=== PATIENT | female | born 1950 | race Caucasian/White ===

== ENCOUNTER 2020-07-17 12:10 | Emergency (ER) | payer MEDICARE ==
[~2020-07-17] VITALS: Ht 170.2 cm; Wt 127.0 kg
[2020-07-17 16:16] VITALS: BP 135/73
== END 2020-07-17 18:56 | disposition short-term general hospital (02) ==
LOC: ER 12:10 → EDBD 12:10 → ER 18:56
DX: S05.92XA Unspecified injury of left eye and orbit, initial encounter (principal); S09.90XA Unspecified injury of head, initial encounter; H11.32 Conjunctival hemorrhage, left eye; E11.9 Type 2 diabetes mellitus without complications; I10 Essential (primary) hypertension; R07.89 Other chest pain; E78.5 Hyperlipidemia, unspecified; Z88.0 Allergy status to penicillin; Z20.822 Contact with and (suspected) exposure to COVID-19; W01.0XXA Fall on same level from slipping, tripping and stumbling without subsequent striking against object, initial encounter; Y93.89 Activity, other specified; Y92.89 Other specified places as the place of occurrence of the external cause; Y99.8 Other external cause status
CPT/HCPCS: 36415; 70450; 70486; 72125; 87426; 93005

== ENCOUNTER 2021-11-20 23:40 | Emergency (ER) | payer MEDICARE ==
[~2021-11-20] VITALS: Ht 165.1 cm; Wt 240.0 kg
[2021-11-20 23:59] VITALS: BP 147/99
[2021-11-21] MEDS ORDERED: BACL10TA PO (03:40)
[2021-11-21] MEDS ORDERED: IBUP600T27 PO (03:40)
== END 2021-11-21 08:14 | disposition home or self-care (01) ==
LOC: EDBD 23:40 → ER 23:40 → EDUNIT# 23:40 → ER 11-21 08:12
DX: S09.8XXA Other specified injuries of head, initial encounter (principal); H11.31 Conjunctival hemorrhage, right eye; E11.9 Type 2 diabetes mellitus without complications; E78.5 Hyperlipidemia, unspecified; I10 Essential (primary) hypertension; Z88.0 Allergy status to penicillin; W18.11XA Fall from or off toilet without subsequent striking against object, initial encounter; Y93.89 Activity, other specified; Y92.89 Other specified places as the place of occurrence of the external cause; Y99.8 Other external cause status
CPT/HCPCS: 70450; 70486; 72125

== ENCOUNTER 2022-05-24 05:32 | Inpatient (IN) | payer MEDICARE, OTHER ==
[~2022-05-24] VITALS: Ht 165.1 cm; Wt 120.6 kg
[~2022-05-24 05:32] MED LIST: BACL10TA PO; IBUP600T27 PO
[2022-05-24] MEDS ORDERED: ACCU-CHEK COMFORT CURVE STRIP VI ONE ×2 (05:45→06:00)
[2022-05-24] MEDS ORDERED: DEXTROSE (50%) 50ML SYRG IV ONE ×2 (05:45→06:00)
[2022-05-24 06:21] LABS: Basophils # (auto) 0.1 10 ^3/uL (0-0.2); Basophils % (auto) 1.3 % (0.0-2.0); Eosinophils # (auto) 0.3 10 ^3/uL (0-0.8); Eosinophils % (auto) 4.5 % (0.0-7.0); Hematocrit 43.1 % (36.0-46.0); Hemoglobin 13.8 g/dL (12.2-16.2); Lymphocytes # (auto) 1.4 10 ^3/uL (0.4-5.4); Lymphocytes % (auto) 19.3 % (10.0-50.0); Mean Corpuscular Hemoglobin 24.9 pg (28.0-32.0); Mean Corpuscular Volume 77.7 fL (80.0-100.0); Monocytes # (auto) 0.6 10 ^3/uL (0-1.3); Monocytes % (auto) 7.4 % (0.0-12.0); Neutrophils % (auto) 67.5 % (37.0-80.0); Nucleated Red Blood Cells % 0.1 %; Red Blood Cells 5.54 10^6/uL (4.0-5.20); Red Cell Distribution Width 19.5 % (11.8-14.3); White Blood Cell 7.5 10^3/uL (4.4-10.8)
[2022-05-24 06:38] LABS: Albumin 3.3 g/dL (3.4-5.0); BUN/Creatinine Ratio 14.7; Calcium 9.4 mg/dL (8.5-10.1)
[2022-05-24 06:41] LABS: Bilirubin, Total 1.5 mg/dL (0.2-1.0); Total Protein 6.7 g/dL (6.4-8.2)
[2022-05-24] MEDS ORDERED: D5W/SOD CHL 0.45% 1,000 ML IV ONE (07:00)
[2022-05-24] MEDS ORDERED: POTASSIUM CHL 20 Meq TABLET PO ONE (07:00)
[2022-05-24] MEDS ORDERED: FLUORESCEIN SOD OPTH TEST STRIP RIGHTEYE ONE (07:15)
[2022-05-24] MEDS ORDERED: TETRACAINE HCL 0.5% OPTH(EYE) SOLN 4ML RIGHTEYE ONE (07:15)
[2022-05-24] MEDS ORDERED: NITROGLYCERIN 0.4 MG SL TAB SL PRN (09:30)
[2022-05-24] MEDS ORDERED: ACETAMINOPHEN 325 MG TAB PO PRN (09:30)
[2022-05-24] MEDS ORDERED: MORPHINE SULFATE INJ 2 MG/ml SYRG IV PRN ×2 (09:30)
[2022-05-24] MEDS ORDERED: PROP10TA57 PO (09:41)
[2022-05-24] MEDS ORDERED: LEVO150T10 PO (09:41)
[2022-05-24] MEDS ORDERED: ATOR10TA52 PO (09:41)
[2022-05-24] MEDS ORDERED: GABA300C10 PO (09:41)
[2022-05-24] MEDS ORDERED: TOLT1CAP29 PO (09:41)
[2022-05-24] MEDS ORDERED: LOSA-39 PO (09:41)
[2022-05-24] MEDS ORDERED: DEXTROSE (50%) 50ML SYRG IV PRN (09:45)
[2022-05-24 10:04] LABS: Cholesterol 100 mg/dL (< 200); Triglycerides 91 mg/dL (< 150)
[2022-05-24 10:05] LABS: Urine Bacteria FEW /hpf (None Seen); Urine Blood Negative /uL (Negative); Urine Hyaline Cast FEW /lpf (0 - 2); Urine Specific Gravity 1.012 (1.001-1.035); Urine WBC 5 /hpf (0 - 5)
[2022-05-24 10:06] LABS: HDL Cholesterol 58 mg/dL (40-59); LDL Cholesterol 43 mg/dL (< 100)
[2022-05-24] MEDS: ENOXAPARIN SOD 40 MG/0.4 ML SYRINGE SC SCH (11:07)
[2022-05-24] MEDS: LEVOTHYROXINE SODIUM 50 MCG TAB PO SCH (11:08)
[2022-05-24] MEDS: GABAPENTIN 300 MG CAP PO SCH ×2 (11:08→22:33)
[2022-05-24] MEDS: LOSARTAN POTASSIUM 50 MG TAB PO SCH (11:12)
[2022-05-24] MEDS: PROPRANOLOL HCL 20 MG TAB PO SCH ×2 (11:14→22:34)
[2022-05-24] MEDS: InsuLIN REG 1unit/0.01ml Soln (100units/ml) SC SCH ×3 (16:48→22:00)
[2022-05-24] MEDS: ACCU-CHEK COMFORT CURVE STRIP VI SCH ×3 (16:48→22:23)
[2022-05-24] MEDS: SODIUM CHLORIDE 0.9% 1,000 ML IV SCH ×2 (16:50→21:47)
[2022-05-24] MEDS: OXYBUTYNIN CHL 5 MG TAB PO SCH ×2 (17:26→22:33)
[2022-05-24] MEDS: HYDROcodone-ACET 5/325MG TAB PO PRN (17:26)
[2022-05-24] MEDS: ATORVASTATIN 20 MG TAB PO SCH (22:33)
[2022-05-25 03:02] VITALS: BP 153/90
[2022-05-25 05:00] VITALS: BP 146/93
[2022-05-25] MEDS: OXYBUTYNIN CHL 5 MG TAB PO SCH ×3 (06:07→21:48)
[2022-05-25] MEDS: SODIUM CHLORIDE 0.9% 1,000 ML IV SCH ×2 (06:07→18:03)
[2022-05-25] MEDS: LEVOTHYROXINE SODIUM 50 MCG TAB PO SCH (06:08)
[2022-05-25] MEDS: ACCU-CHEK COMFORT CURVE STRIP VI SCH ×4 (06:10→21:40)
[2022-05-25] MEDS: InsuLIN REG 1unit/0.01ml Soln (100units/ml) SC SCH ×4 (06:11→21:40)
[2022-05-25 09:00] VITALS: BP 151/84
[2022-05-25 09:50] LABS: Basophils # (auto) 0.1 10 ^3/uL (0-0.2); Eosinophils # (auto) 0.3 10 ^3/uL (0-0.8); Hemoglobin 12.5 g/dL (12.2-16.2); Monocytes # (auto) 0.4 10 ^3/uL (0-1.3); Neutrophils # (auto) 2.9 10 ^3/uL (1.6-8.6); Nucleated Red Blood Cells % 0.2 %; White Blood Cell 5.4 10^3/uL (4.4-10.8)
[2022-05-25 09:51] LABS: Basophils % (auto) 1.7 % (0.0-2.0); Lymphocytes # (auto) 1.8 10 ^3/uL (0.4-5.4); Lymphocytes % (auto) 32.8 % (10.0-50.0); Mean Corpuscular Hemoglobin 24.2 pg (28.0-32.0); Mean Corpuscular Volume 75.5 fL (80.0-100.0); Neutrophils % (auto) 53.5 % (37.0-80.0); Red Blood Cells 5.16 10^6/uL (4.0-5.20); Red Cell Distribution Width 19.5 % (11.8-14.3)
[2022-05-25] MEDS: ENOXAPARIN SOD 40 MG/0.4 ML SYRINGE SC SCH (10:15)
[2022-05-25 10:17] LABS: Albumin 2.8 g/dL (3.4-5.0); Bilirubin, Total 1.1 mg/dL (0.2-1.0); Calcium 8.1 mg/dL (8.5-10.1); Potassium 3.4 mmol/L (3.5-5.1); Total Protein 5.6 g/dL (6.4-8.2)
[2022-05-25] MEDS: LOSARTAN POTASSIUM 50 MG TAB PO SCH (10:17)
[2022-05-25] MEDS: GABAPENTIN 300 MG CAP PO SCH ×2 (10:17→21:50)
[2022-05-25] MEDS: PROPRANOLOL HCL 20 MG TAB PO SCH ×2 (10:18→21:49)
[2022-05-25 13:00] VITALS: BP 164/96
[2022-05-25] MEDS: amLODIPine BESYLATE 5 MG TAB PO SCH (14:33)
[2022-05-25] MEDS: HYDROcodone-ACET 5/325MG TAB PO PRN (15:54)
[2022-05-25 17:00] VITALS: BP 163/90
[2022-05-25] MEDS: ATORVASTATIN 20 MG TAB PO SCH (21:50)
[2022-05-25 23:47] VITALS: BP 157/96
[2022-05-26] VITALS (8 sets, daily range): BP systolic 132–169; BP diastolic 65–100
[2022-05-26] MEDS: SODIUM CHLORIDE 0.9% 1,000 ML IV SCH ×2 (01:45→11:45)
[2022-05-26] MEDS: ACCU-CHEK COMFORT CURVE STRIP VI SCH ×4 (06:17→21:21)
[2022-05-26] MEDS: InsuLIN REG 1unit/0.01ml Soln (100units/ml) SC SCH ×4 (06:17→21:21)
[2022-05-26] MEDS: LEVOTHYROXINE SODIUM 50 MCG TAB PO SCH (06:32)
[2022-05-26] MEDS: OXYBUTYNIN CHL 5 MG TAB PO SCH ×3 (06:32→21:20)
[2022-05-26] MEDS: GABAPENTIN 300 MG CAP PO SCH ×2 (09:53→21:20)
[2022-05-26] MEDS: LOSARTAN POTASSIUM 50 MG TAB PO SCH (09:54)
[2022-05-26] MEDS: PROPRANOLOL HCL 20 MG TAB PO SCH ×2 (09:55→21:21)
[2022-05-26] MEDS: ENOXAPARIN SOD 40 MG/0.4 ML SYRINGE SC SCH (09:55)
[2022-05-26] MEDS ORDERED: amLODIPine BESYLATE 5 MG TAB PO SCH (12:00)
[2022-05-26] MEDS: amLODIPine BESYLATE 5 MG TAB PO SCH (13:33)
[2022-05-26 15:47] LABS: BUN/Creatinine Ratio 17.3; Calcium 8.5 mg/dL (8.5-10.1); Potassium 3.4 mmol/L (3.5-5.1)
[2022-05-26] MEDS ORDERED: IOHEXOL 350 MG/ML 100ML IJ ONE (16:48)
[2022-05-26] MEDS: SILDENAFIL CITRATE 20 MG TAB PO SCH (21:20)
[2022-05-26] MEDS: ATORVASTATIN 20 MG TAB PO SCH (21:20)
[2022-05-27 05:02] VITALS: BP 130/58
[2022-05-27] MEDS: ACCU-CHEK COMFORT CURVE STRIP VI SCH ×2 (06:01→12:23)
[2022-05-27] MEDS: InsuLIN REG 1unit/0.01ml Soln (100units/ml) SC SCH ×2 (06:01→11:30)
[2022-05-27] MEDS: OXYBUTYNIN CHL 5 MG TAB PO SCH ×2 (06:21→14:00)
[2022-05-27] MEDS: LEVOTHYROXINE SODIUM 50 MCG TAB PO SCH (06:21)
[2022-05-27] MEDS: SILDENAFIL CITRATE 20 MG TAB PO SCH ×2 (08:37→14:00)
[2022-05-27 09:00] VITALS: BP 141/74
[2022-05-27] MEDS ORDERED: SILD20TA PO (10:27)
[2022-05-27] MEDS ORDERED: AML5T PO (10:27)
[2022-05-27] MEDS: ENOXAPARIN SOD 40 MG/0.4 ML SYRINGE SC SCH (10:36)
[2022-05-27] MEDS: LOSARTAN POTASSIUM 50 MG TAB PO SCH (10:37)
[2022-05-27] MEDS: GABAPENTIN 300 MG CAP PO SCH (10:37)
[2022-05-27] MEDS: PROPRANOLOL HCL 20 MG TAB PO SCH (10:38)
[2022-05-27 11:35] VITALS: BP 141/74
[2022-05-27] MEDS: amLODIPine BESYLATE 5 MG TAB PO SCH (12:23)
[2022-05-27 13:00] VITALS: BP 127/79
== END 2022-05-27 13:50 | disposition home or self-care (01) | DRG 125 ==
LOC: ER 05:32 → EDBD 05:32 → TELE 09:31 → TELE-CENTR 05-25 01:47
PROVIDERS: ADMIT Registered Nurse; ATTEND Hospitalist
PROC: 5A09357 Assistance with Respiratory Ventilation, Less than 24 Consecutive Hours, Continuous Positive Airway Pressure (ICD-10-PCS; principal; 2022-05-25)
DX: S00.11XA Contusion of right eyelid and periocular area, initial encounter (principal); Z68.41 Body mass index [BMI] 40.0-44.9, adult; E03.9 Hypothyroidism, unspecified; E11.9 Type 2 diabetes mellitus without complications; E86.0 Dehydration; E78.5 Hyperlipidemia, unspecified; E11.40 Type 2 diabetes mellitus with diabetic neuropathy, unspecified; Z60.2 Problems related to living alone; M47.896 Other spondylosis, lumbar region; M47.816 Spondylosis without myelopathy or radiculopathy, lumbar region; E66.01 Morbid (severe) obesity due to excess calories; H11.32 Conjunctival hemorrhage, left eye; G47.33 Obstructive sleep apnea (adult) (pediatric); I10 Essential (primary) hypertension; H54.8 Legal blindness, as defined in USA; I27.29 Other secondary pulmonary hypertension; Z82.49 Family history of ischemic heart disease and other diseases of the circulatory system; W01.0XXA Fall on same level from slipping, tripping and stumbling without subsequent striking against object, initial encounter; R29.6 Repeated falls; Z96.641 Presence of right artificial hip joint; Z88.0 Allergy status to penicillin; Z83.3 Family history of diabetes mellitus; Z91.81 History of falling; Z71.3 Dietary counseling and surveillance; Y93.89 Activity, other specified; Y92.098 Other place in other non-institutional residence as the place of occurrence of the external cause; Y99.8 Other external cause status
CPT/HCPCS: 36415; 70450; 70486; 71045; 71275; 72125; 72170; 72192; 80048; 80053; 80061; 81001; 82962; 83036; 84443; 84484; 85025; 85379; 87426; 93005; 93306; 93970; 94660; 96360; 96372; 97163; G0378